=== PATIENT | female | born 1995 | race American Indian/Alaskan Native ===

== ENCOUNTER 2018-02-24 21:13 | Outpatient (CLI) | payer MEDICAID ==
[2018-02-24] MEDS ORDERED: LACTATED RINGERS 500 ML IV ONE (21:37)
[2018-02-24] MEDS ORDERED: TYLENOL PO ONE (22:06)
[2018-02-24] MEDS ORDERED: IMITREX PO ONE (22:07)
[2018-02-24 22:52] LABS: Bacteria,Urine 2+ /HPF (Negative); Bilirubin,Urine NEG (Negative); Blood,Urine NEG (Negative); Color,Urine Yellow (Yellow); Mucus,Urine 1+ /HPF; Protein,Urine <15 mg/dL mg/dL (Negative)
[2018-02-24] MEDS ORDERED: PROVENTIL IH ONE (22:55)
[2018-02-24 22:58] LABS: Amphetamine Screen,Urine PRESUMPTIVE NEGATIVE; Benzodiazepines Screen,Urine PRESUMPTIVE NEGATIVE; Cannabinoid Screen,Urine PRESUMPTIVE NEGATIVE; Cocaine Screen,Urine PRESUMPTIVE NEGATIVE; Methadone Screen,Urine PRESUMPTIVE NEGATIVE; Opiate Screen,Urine PRESUMPTIVE NEGATIVE
[2018-02-24 23:06] VITALS: BP 116/65
[2018-02-24] MEDS ORDERED: LACTATED RINGERS 1,000 ML ONE (23:27)
[2018-02-24 23:52] LABS: Hematocrit 36.1 % (30.3-42.9); Hemoglobin 11.6 gm/dl (10.1-14.3); Mean Corpuscular HGB Conc 32 % (30-34); Mean Corpuscular Hemoglobin 27 pg (28-32); Mean Corpuscular Volume 85 fl (79-97); Platelet Count 172 K/mm3 (140-440); Red Blood Count 4.24 M/mm3 (3.65-5.03); Red Cell Distribution Width 14.4 % (13.2-15.2)
[2018-02-25 00:13] LABS: Alanine Aminotransferase 8 units/L (7-56)
[2018-02-25] MEDS ORDERED: PROVENTIL IH ONE (22:06)
== END 2018-02-25 00:32 | disposition still patient (30) ==
LOC: TRG 21:13
PROVIDERS: ATTEND Obstetrics & Gynecology
DX: O47.03 False labor before 37 completed weeks of gestation, third trimester (principal); Z3A.30 30 weeks gestation of pregnancy; Z79.899 Other long term (current) drug therapy
CPT/HCPCS: 36415; 59025; 80307; 81001; 82565; 83615; 84450; 84460; 84550; 85027; 94640; 96360; J7120

== ENCOUNTER 2018-02-25 00:41 | Emergency (ER) | payer MEDICAID ==
[2018-02-25] MEDS ORDERED: NORCO 5/325 PO ONE (02:55)
[2018-02-25] MEDS ORDERED: PEPCID IV ONE (02:55)
[2018-02-25] MEDS ORDERED: ZOFRAN IV ONE (02:55)
[2018-02-25] MEDS ORDERED: NACL 0.9% 1000 ML 1,000 ML IV ONE (02:55)
--- NOTE | 2018-02-25 02:55 | Emergency Department Report ---
ED General Adult HPI - General Chief complaint: Dyspnea/Respdistress Stated complaint: HEADACHE,BLUR VISION,CHEST PAIN Time Seen by Provider: 02/25/18 02:43 Source: patient Mode of arrival: Wheelchair Limitations: No Limitations - History of Present Illness Initial comments: Ms. Bolivar is a healthy 22-year-old who presents with headache. She had throbbing frontal headache which prompted her to have evaluation at labor and delivery yesterday afternoon. She received medications for migraine including Tylenol. Her headache has improved. She had assoicated mild blurry vision. While at [facility] she developed chest tightness which radiates to her throat. She denies wheezing. She does have a history of asthma. Minimal shortness of breath. Denies cough. Denies fever. No vaginal bleeding or vaginal discharge. She has positive movement. Gradual onset of symptoms. Headache began 2 days ago. Chest pain began approximately 8 PM. Patient is 30 weeks . Estimated due date 05/05/2018 - Related Data Previous Rx's Medication Instructions Recorded Last Taken Type Albuterol Sulfate [Ventolin HFA] 2 puff IH Q4H PRN #1 hfa.[email or web address] 01/20/15 1 Month Ago Rx ~01/24/18 Nitrofurantoin Macrocrystal 100 mg PO BID 10 Days #20 capsule 02/25/18 Unknown Rx [Nitrofurantoin] Allergies Allergy/AdvReac Type Severity Reaction Status Date / Time No Known Allergies Allergy Verified 01/20/15 09:02 ED Review of Systems ROS: Stated complaint: HEADACHE,BLUR VISION,CHEST PAIN Other details as noted in HPI Comment: All other systems reviewed and negative Constitutional: denies: malaise Cardiovascular: chest pain Gastrointestinal: nausea. denies: abdominal pain, vomiting ED Past Medical Hx - Past Medical History Hx Hypertension: No Hx Diabetes: No Hx Deep Vein Thrombosis: No Hx Renal Disease: No Hx Sickle Cell Disease: No Hx Seizures: No Hx Asthma: Yes (abulerol inhaler PRN; last used last month) Hx HIV: No - Surgical History Additional Surgical History: 06/02/2014 - Social History Smoking Status: Never Smoker Substance Use Type: None - Medications Home Medications: Home Medications Medication Instructions Recorded Confirmed Last Taken Type Albuterol Sulfate [Ventolin HFA] 2 puff IH Q4H PRN #1 hfa.aer.ad 01/20/15 1 Month Ago Rx ~01/24/18 Nitrofurantoin Macrocrystal 100 mg PO BID 10 Days #20 capsule 02/25/18 Unknown Rx [Nitrofurantoin] ED Physical Exam - General Limitations: No Limitations General appearance: alert, in no apparent distress - Head Head exam: Present: atraumatic, normocephalic - Eye Eye exam: Present: normal appearance - ENT ENT exam: Present: mucous membranes moist - Neck Neck exam: Present: normal inspection - Respiratory Respiratory exam: Present: normal lung sounds bilaterally. Absent: respiratory distress, wheezes, rales, rhonchi - Cardiovascular Cardiovascular Exam: Present: regular rate, normal rhythm. Absent: systolic murmur, diastolic murmur, rubs, gallop - GI/Abdominal GI/Abdominal exam: Present: soft, distended (gravid), normal bowel sounds. Absent: tenderness, guarding, rebound - Extremities Exam Extremities exam: Present: normal inspection - Back Exam Back exam: Present: normal inspection - Neurological Exam Neurological exam: Present: alert, oriented X3 - Psychiatric Psychiatric exam: Present: normal affect, normal mood - Skin Skin exam: Present: warm, dry, intact, normal color. Absent: rash ED Course Vital Signs 02/25/18 02/25/18 01:00 03:10 Temperature 98.5 F Pulse Rate 82 Respiratory 20 16 Rate Blood Pressure 125/71 O2 Sat by Pulse 100 100 Oximetry ED Medical Decision Making - EKG Data -: EKG Interpreted by Me EKG shows normal: sinus rhythm, axis, intervals, QRS complexes, ST-T waves Rate: normal - EKG Data 02/25/18 02:58 EKG obtained 0054 NSR nl rate nl axis nl intervals no ST-T signs of ischemia no ST elevation rate 70 bpm which is normal - Medical Decision Making Ms. Bernardo is a 22-year-old 30 week female. I suspect tension headache but without signs of hypertension. No indication of preeclampsia. Also suspect reflux. Pain radiates to her throat. No indication of asthma exacerbation. No indication of pulmonary embolism. Normal vital signs. She was given IV fluid and labor and delivery. She was given IV Pepcid and Zofran. I reviewed labs obtained during L&D encounter. Uric acid is not elevated. Chemistry within normal limits. Urinalysis revealed UTI. I have prescribed nitrofurantoin. I do not suspect idiopathic intracranial hypertension patient is comfortable with only mild headache which resolved easily with medications. She'll follow-up with her captain waiter this week. Critical care attestation.: If time is entered above; I have spent that time in minutes in the direct care of this critically ill patient, excluding procedure time. ED Disposition Clinical Impression: Tension headache, UTI (urinary tract infection), Chest pain, in third trimester with history of , antepartum Disposition: TO HOME OR SELFCARE Is pt being admited?: No Does the pt Need Aspirin: No Condition: Stable Instructions: Chest Pain (ED), Tension Headache (ED), Urinary Tract Infection in Women (ED) Additional Instructions: Please see her captain waiter or OIL DISPENSER this week. Please inform your captain waiter that you were evaluated in the ED and labor and delivery. Prescriptions: Nitrofurantoin Macrocrystal [Nitrofurantoin] 100 mg PO BID 10 Days #20 capsule Referrals: RENATA BILLY CNM [Primary Care Provider] - 2-3 Days Forms: Work/School Release Form(ED) Time of Disposition: 03:39
[2018-02-25 03:55] VITALS: BP 95/52
== END 2018-02-25 03:55 | disposition home or self-care (01) ==
LOC: ED 00:41
DX: O99.353 Diseases of the nervous system complicating pregnancy, third trimester (principal); G44.209 Tension-type headache, unspecified, not intractable; O23.43 Unspecified infection of urinary tract in pregnancy, third trimester; O26.893 Other specified pregnancy related conditions, third trimester; R07.89 Other chest pain; O99.513 Diseases of the respiratory system complicating pregnancy, third trimester; J45.909 Unspecified asthma, uncomplicated; Z3A.30 30 weeks gestation of pregnancy
CPT/HCPCS: 36415; 84484; 93005; 93010; 96374; 96375; 99283; J2405

== ENCOUNTER 2018-04-30 05:29 | Inpatient (IN) | payer MEDICAID ==
[2018-04-30] MEDS ORDERED: LACTATED RINGERS 2,000 ML ONE (05:52)
[2018-04-30] MEDS ORDERED: BICITRA PO ONE (06:08)
[2018-04-30] MEDS ORDERED: PEPCID IV ONE (06:08)
[2018-04-30] MEDS ORDERED: REGLAN IV ONE (06:08)
[2018-04-30 06:32] LABS: Basophils % (Auto) 0.6 % (0.0-1.8); Eosinophils # (Auto) 0.2 K/mm3 (0.0-0.4); Hematocrit 33.9 % (30.3-42.9); Hemoglobin 11.2 gm/dl (10.1-14.3); Lymphocytes % (Auto) 24.9 % (13.4-35.0); Mean Corpuscular HGB Conc 33 % (30-34); Mean Corpuscular Hemoglobin 28 pg (28-32); Mean Corpuscular Volume 86 fl (79-97); Monocytes # (Auto) 0.9 K/mm3 (0.0-0.8); Monocytes % (Auto) 10.9 % (0.0-7.3); Platelet Count 141 K/mm3 (140-440); Red Blood Count 3.97 M/mm3 (3.65-5.03); Red Cell Distribution Width 14.5 % (13.2-15.2)
[2018-04-30] MEDS ORDERED: LACTATED RINGERS 1,000 ML IV SCH (07:00)
[2018-04-30] MEDS ORDERED: ANCEF/STERILE WATER 2 GM/20 ML 2 GM/20 ML SYRINGE IV NR ×2 (07:00→08:00)
[2018-04-30] MEDS ORDERED: PITOCin/NS 20 UNIT/1000ML DRIP 20 UNITS/1,000 ML BAG IV SCH ×2 (07:00→12:00)
--- NOTE | 2018-04-30 07:15 | History and Physical Report ---
History of Present Illness Date of examination: 04/30/18 Date of admission: 04/30/18 05:29 Chief complaint: Repeat History of present illness: 22-year-old at ~ 39 weeks presents for repeat , she is a [facility] patient. 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 denies: smoking, full code - Obstetrical History Expected Date of Delivery: 05/05/18 Actual Gestation: 39 Week(s) 2 Day(s) : 4 Para: 1 Medications and Allergies Allergies Allergy/AdvReac Type Severity Reaction Status Date / Time No Known Allergies Allergy Verified 01/20/15 09:02 Home Medications Medication Instructions Recorded Confirmed Last Taken Type Albuterol Sulfate [Ventolin HFA] 2 puff IH Q4H PRN #1 hfa.aer.ad 01/20/15 1 Month Ago Rx ~01/24/18 Nitrofurantoin Macrocrystal 100 mg PO BID 10 Days #20 capsule 02/25/18 Unknown Rx [Nitrofurantoin] Active Meds: Active Medications Cefazolin Sodium (Ancef/Sterile Water 2 Gm/20 Ml) 2 gm in 20 mls @ 80 mls/hr IV PREOP NR; Protocol Stop: 04/30/18 07:14 Lactated Ringer's (Lactated Ringers) 1,000 mls @ 2,250 mls/hr IV PREOP ELLIOT Stop: 05/01/18 07:27 Last Admin: 04/30/18 06:00 Dose: 2,250 mls/hr Oxytocin/Sodium Chloride (Pitocin/Ns 20 Unit/1000ml Drip) 20 units in 1,000 mls @ 0 mls/hr IV TITR ELLIOT Review of Systems Constitutional: no fever, no chills, no chronic headaches Cardiovascular: no chest pain, no orthopnea, no palpitations, no syncope, no lightheadedness, no shortness of breath, no dyspnea on exertion, no high blood pressure Respiratory: no cough, no cough with sputum, no shortness of breath, no dyspnea on exertion Gastrointestinal: no abdominal pain, no nausea, no vomiting Genitourinary: no vaginal bleeding, no vaginal discharge, no leakage of fluid - Vital Signs Vital signs: Vital Signs Pulse BP 71 107/62 04/30/18 06:17 04/30/18 06:17 Temp Pulse Resp BP Pulse Ox 98.2 F 77 18 107/62 98 04/30/18 06:29 04/30/18 07:13 04/30/18 06:29 04/30/18 06:29 04/30/18 07:13 - Physical Exam Cardiovascular: Regular rate, Normal S1, Normal S2 Lungs: Positive: Clear to auscultation, Normal air movement Abdomen: Positive: normal appearance, soft. Negative: distention, tenderness, guarding, rigidity Genitourinary (Female): Positive: normal external genitalia Uterus: Positive: enlarged (EFW ~ 3600). Negative: tender Extremities: Positive: normal - Obstetrical FHR: category 1 Results Result Diagrams: 04/30/18 06:00 Abnormal lab results 04/30/18 Range/Units 06:00 [place] % (Auto) 10.9 H (0.0-7.3) % [place] # 0.9 H (0.0-0.8) K/mm3 All other labs normal. Assessment and Plan A: 22-year-old at 39+2 weeks with prior for repeat -Cat 1 tracing P: -Admit -Routine labs -Patient has been consented -Proceed to the OR was available - Patient Problems (1) 39 weeks gestation of Current Visit: Yes Status: Acute (2) Previous delivery affecting , antepartum Current Visit: Yes Status: Acute
--- NOTE | 2018-04-30 07:21 | Anesthesia Consultation ---
Anesthesia Consult and Med Hx Date of service: 04/30/18 - Airway Anesthetic Teeth Evaluation: Good ROM Head & Neck: Adequate Mental/Hyoid Distance: Adequate Mallampati Class: Class II Intubation Access Assessment: Probably Good - Pre-Operative Health Status ASA Pre-Surgery Classification: ASA2 Proposed Anesthetic Plan: Epidural, Spinal - Pulmonary Hx Asthma: Yes (albuterol inhaler PRN; last used 07/2017) COPD: No Hx Pneumonia: No - Cardiovascular System Hx Hypertension: No - Central Nervous System Hx Seizures: No Hx Psychiatric Problems: No - Endocrine Hx Renal Disease: No Hx End Stage Renal Disease: No Hx Hypothyroidism: No Hx Hyperthyroidism: No - Hematic Hx Anemia: No Hx Sickle Cell Disease: No - Other Systems Hx Alcohol Use: No
--- NOTE | 2018-04-30 07:22 | Anesthesia Day of Surgery ---
Anesthesia Day of Surgery - Day of Surgery Patient Examined: Yes Patient H&P Reviewed: Yes Patient is NPO: Yes
[2018-04-30] MEDS ORDERED: NARCAN 0.4 MG/1 ML IV PRN ×2 (08:00→11:49)
[2018-04-30] MEDS ORDERED: SODIUM CHLORIDE FLUSH SYRINGE 10 ML IV PRN (08:00)
[2018-04-30] MEDS ORDERED: PHENERGAN PR PRN (08:00)
[2018-04-30] MEDS ORDERED: ZOFRAN IV PRN (08:00)
[2018-04-30] MEDS ORDERED: PHENERGAN PO PRN (08:00)
[2018-04-30] MEDS ORDERED: BENADRYL IV PRN (08:00)
[2018-04-30] MEDS ORDERED: DILAUDID IV PRN (08:00)
[2018-04-30] MEDS ORDERED: EMLA TP PRN (08:00)
[2018-04-30] MEDS ORDERED: WATER FOR IRRIG STERILE IR ONE (10:00)
[2018-04-30] MEDS ORDERED: NACL 0.9% IR ONE (10:00)
[2018-04-30] MEDS ORDERED: NEO SYNEPHRINE/NS Syringe(OR USE) IV ONE (10:25)
[2018-04-30] MEDS ORDERED: XYLOCAINE MPF 2% ONE ×5 (10:31→11:23)
[2018-04-30] MEDS ORDERED: MORPHINE ONE (11:23)
[2018-04-30] MEDS ORDERED: MYLICON PO PRN (11:49)
[2018-04-30] MEDS ORDERED: MILK OF MAGNESIA PO PRN (11:49)
[2018-04-30] MEDS ORDERED: TUCKS PAD TP PRN (11:49)
[2018-04-30] MEDS ORDERED: TYLENOL PO PRN (11:49)
[2018-04-30] MEDS ORDERED: LANSINOH TP PRN (11:49)
[2018-04-30] MEDS ORDERED: ANUCORT-HC PR PRN (11:49)
[2018-04-30] MEDS ORDERED: SENOKOT PO PRN (11:49)
--- NOTE | 2018-04-30 11:49 | Operative Report ---
Operative Report Operative Report: DATE: 04/30/2018 PREOPERATIVE DIAGNOSIS: 22-year-old at 39+2 weeks, prior desires repeat POSTOP DIAGNOSIS: As above NAME OF PROCEDURE: 2nd Repeat low transverse section SURGEON: SUSAN HAMM MD SOCIAL WORK THERAPIST: Luzmaria ANESTHESIA: Combined spinal epidural EBL: 800 mL PATHOLOGY SPECIMEN: None URINE OUTPUT: 400 mL FINDINGS: Female in cephalic presentation, time of 11:02 AM, weight 6 lbs. 10 oz. or 3009 g, Apgars 8 and 9, normal uterus tubes and ovaries bilaterally, minimal adhesions DESCRIPTION OF PROCEDURE: She was taken to the operating room where she was prepped and draped in a sterile fashion, she was placed in the dorsal supine position. Pfannenstiel incision was performed through her prior incisional scar which was carried through to underlying rectus fascia which was scored in the midline. The fascial incision was extended laterally with use of Villalobos scissors, the anterior leaf was then grasped with Kochers forceps elevated dissected sharply and bluntly off the underlying rectus in a similar fashion inferior leaf was grasped elevated dissected sharply and bluntly off the underlying rectus. The rectus was in the midline, good visualization of bladder was noted. A bladder blade was placed in the patient's pelvic cavity ; bladder flap was created. A hysterotomy incision was then performed in the lower segment with clear amniotic fluid noted, hysterotomy incision was extended laterally with the use of fingers manually. Infant in cephalic presentation was delivered in the usual manner; cord was clamped and cut infant was handed over to waiting nursery staff. The placenta was then delivered manually intact, the uterus was exteriorized cleared of all clots and debris. Hysterotomy incision was then closed in a running locked fashion with 0 Vicryl on a CTX; using the same suture was imbricate the initial layer. Interrupted [id number] stitches were used to obtain hemostasis. Uterus was then returned to the patient's pelvic cavity; peritoneal edges were grasped with hemostats and Karen's elevated copious irrigation was used to clear the gutters of all clots and debris. Tercel hemostatic agent was then applied to the hysterotomy incision as a means to prevent future bleeding. The peritoneal layer was then closed in a running fashion with 3-0 Vicryl and the rectus was reapproximated with a single [id number] stitch. The fascia was closed in a running fashion with 0 Vicryl and tied in the opposite side. The subcutaneous layer was irrigated and then reapproximated with interrupted figure -of-eight stitches. The skin was closed in a subcuticular manner with 4-0 Vicryl. She tolerated the procedure well lap and instrument counts were correct 2 she did receive 2 g of Ancef prior to incision she is transferred to PACU in stable condition thank you.
[2018-04-30] MEDS ORDERED: SODIUM CHLORIDE FLUSH SYRINGE 10 ML IV SCH (12:00)
[2018-04-30] MEDS ORDERED: D5LR 1,000 ML IV SCH (12:00)
[2018-04-30] MEDS: TORADOL IV PRN ×2 (14:12→20:03)
[2018-04-30 23:13] LABS: Hematocrit 33.8 % (30.3-42.9); Hemoglobin 11.2 gm/dl (10.1-14.3)
[2018-05-01] MEDS: TORADOL IV PRN (02:08)
[2018-05-01] MEDS ORDERED: BOOSTRIX IM ONE (06:00)
--- NOTE | 2018-05-01 10:11 | Progress Note ---
Assessment and Plan A: POD #1 Stable P: Follow Routine PostOp Orders Encourage increased ambulation Subjective - Subjective Date of service: 05/01/18 Patient reports: appetite normal, voiding normally, pain well controlled, flatus , ambulating normally [place]: doing well, bottle feeding Objective - Vital Signs Latest vital signs: Vital Signs Temp Pulse Resp BP BP Pulse Ox 05/01/18 00:30 98.7 F 77 16 114/68 04/30/18 20:00 99.4 F 82 18 109/64 04/30/18 16:41 98.5 F 80 20 103/60 99 04/30/18 14:12 20 04/30/18 14:00 98.9 F 74 116/67 04/30/18 12:46 58 L 14 121/67 100 04/30/18 12:43 75 12 123/77 99 04/30/18 12:27 83 13 77/47 100 04/30/18 12:25 97.7 F 04/30/18 12:23 77 13 113/68 99 04/30/18 12:17 79 15 124/70 98 04/30/18 12:11 70 12 115/67 99 04/30/18 12:06 80 12 98/62 100 04/30/18 12:01 79 12 114/70 99 04/30/18 11:55 78 17 107/68 99 04/30/18 11:49 81 11 L 98 04/30/18 11:46 97.7 F 81 16 107/68 99 Intake and Output 04/30/18 05/01/18 05/01/18 22:59 06:59 14:59 Intake Total 660 500 Output Total 1000 900 Balance -340 -400 Intake: Oral 360 200 Intake, Free Water 300 300 Output: Urine 1000 900 Indwelling Catheter 1000 900 Other: Total, Intake Amount 360 200 Total, Output Amount 1000 900 - Exam Breasts: Present: normal Cardiovascular: Present: Regular rate Lungs: Present: Clear to auscultation, Normal air movement Abdomen: Present: normal appearance, soft, normal bowel sounds Uterus: Present: normal, firm, fundal height below umbilicus Extremities: Present: normal Incision: Present: normal, dry, dressed
[2018-05-01] MEDS: PRENATAL VITAMIN PO SCH (10:32)
[2018-05-01] MEDS: PERCOCET 5/325 PO PRN ×3 (10:32→22:03)
[2018-05-01] MEDS: FEOSOL PO SCH (10:32)
[2018-05-01] MEDS: MOTRIN PO PRN ×3 (10:33→22:03)
[2018-05-01] MEDS ORDERED: M-M-R II VACCINE SUB-Q ONE (11:50)
[2018-05-01] MEDS ORDERED: DILAUDID PO PRN (20:39)
[2018-05-02] MEDS: PERCOCET 5/325 PO PRN ×3 (04:17→23:23)
[2018-05-02] MEDS: MOTRIN PO PRN ×3 (04:18→23:22)
[2018-05-02] MEDS: FEOSOL PO SCH (11:11)
[2018-05-02] MEDS: PRENATAL VITAMIN PO SCH (11:11)
--- NOTE | 2018-05-02 11:12 | Progress Note ---
Assessment and Plan A: POD #12 Stable P: Follow Routine PostOp Orders Encourage increased ambulation D/C home in the AM RTO in one Week Subjective - Subjective Date of service: 05/02/18 Patient reports: appetite normal, voiding normally, pain well controlled, flatus , ambulating normally : doing well, bottle feeding (and ) Objective - Vital Signs Latest vital signs: Vital Signs Temp Pulse Resp BP 05/02/18 00:00 98.7 F 78 18 114/75 05/01/18 16:06 98.1 F 77 18 103/58 Intake and Output 05/01/18 05/02/18 05/02/18 22:59 06:59 14:59 Intake Total 300 Balance 300 Intake: Intake, Free Water 300 - Exam Breasts: Present: normal Cardiovascular: Present: Regular rate Lungs: Present: Clear to auscultation, Normal air movement Abdomen: Present: normal appearance, soft, normal bowel sounds Uterus: Present: normal, firm, fundal height below umbilicus Extremities: Present: normal Incision: Present: normal, dry, intact
--- NOTE | 2018-05-02 11:14 | Discharge Summary ---
Providers - Providers Date of Admission: 04/30/18 05:29 Date of discharge: 05/03/18 Attending physician: DELFIN HOWARD MD Primary care physician: DELFIN HOWARD MD Hospitalization Reason for admission: section Delivery: Procedure: repeat low transverse Episiotomy: none Laceration: none Incision: normal, dry, intact Other procedures: none complications: none Discharge diagnosis: IUP at term delivered [place] baby: female Condition at discharge: Good Disposition: DC-01 TO HOME OR SELFCARE Plan - Discharge Medications Prescriptions: Ibuprofen [Motrin 600 MG tab] 600 mg PO Q8H PRN #30 tablet PRN Reason: Pain Multivitamin with Iron [Multivitamins with Iron] 1 each PO DAILY #30 tablet oxyCODONE /ACETAMINOPHEN [Percocet 5/325] 1 tab PO Q6HR PRN #30 tablet PRN Reason: Pain - Provider Discharge Summary Activity: routine, no sex for 6 weeks, no heavy lifting 4 weeks, no strenuous exercise Diet: routine Instructions: routine Additional instructions: [] Smoking cessation referral if applicable(refer to patient education folder for contact #) [] Refer to [facility] Booklet Call your doctor immediately for: * Fever > 100.5 * Heavy vaginal bleeding ( >1 pad per hour) * Severe persistent headache * Shortness of breath * Reddened, hot, painful area to leg or breast * Drainage or odor from incision. * Keep incision clean and dry at all times and follow doctor's instructions regarding bathing/showering - Follow up plan Follow up: DELFNI HOWARD MD [Primary Care Provider] - 7 Days
[2018-05-03] MEDS: PRENATAL VITAMIN PO SCH (10:41)
[2018-05-03] MEDS: FEOSOL PO SCH (10:41)
[2018-05-03] MEDS: PERCOCET 5/325 PO PRN (10:55)
[2018-05-03 14:59] VITALS: BP 108/66
== END 2018-05-03 14:25 | disposition home or self-care (01) | DRG 766 ==
LOC: APU 05:29 → OB 13:36
PROVIDERS: ADMIT Obstetrics & Gynecology; ATTEND Obstetrics & Gynecology
PROC: 10D00Z1 Extraction of Products of Conception, Low, Open Approach (ICD-10-PCS; principal; 2018-05-03)
PROC: 3E0234Z Introduction of Serum, Toxoid and Vaccine into Muscle, Percutaneous Approach (ICD-10-PCS; 2018-05-03)
DX: O34.211 Maternal care for low transverse scar from previous cesarean delivery (principal); Z3A.39 39 weeks gestation of pregnancy; Z37.0 Single live birth; Z23 Encounter for immunization; Z79.899 Other long term (current) drug therapy; J45.909 Unspecified asthma, uncomplicated; O99.52 Diseases of the respiratory system complicating childbirth
CPT/HCPCS: 36415; 85014; 85018; 85025; 86850; 86900; 86901; 90471; J0690; J1885; J2270; J2370; J2590; J2765; J7120; J7121